=== PATIENT | female | born 1975 | race Two or more races ===

== ENCOUNTER 2018-11-22 09:00 | Outpatient (CLI) | payer OTHER | END 2018-11-22 11:02 | disposition home or self-care (01) | LOC: SONOGRAMA 09:00 | DX: E04.2 Nontoxic multinodular goiter (principal) ==

== ENCOUNTER 2021-07-15 08:25 | Outpatient (CLI) | payer OTHER | END 2021-07-15 08:29 | disposition home or self-care (01) | LOC: SONOGRAMA 08:25 | PROVIDERS: ATTEND Pathology Anatomic Pathology & Clinical Pathology | DX: E04.8 Other specified nontoxic goiter (principal) ==

== ENCOUNTER 2022-04-25 05:25 | Outpatient (CLI) | payer OTHER | END 2022-04-25 23:00 | disposition home or self-care (01) | LOC: LAB 05:25 | PROVIDERS: ATTEND Obstetrics & Gynecology | DX: Z20.818 Contact with and (suspected) exposure to other bacterial communicable diseases (principal); Z20.828 Contact with and (suspected) exposure to other viral communicable diseases ==

== ENCOUNTER 2023-10-24 14:37 | Outpatient (CLI) | payer OTHER | END 2023-10-24 14:47 | disposition home or self-care (01) | LOC: SONOGRAMA 14:37 | DX: E04.2 Nontoxic multinodular goiter (principal) ==

== ENCOUNTER 2023-12-12 10:41 | Outpatient (CLI) | payer OTHER | END 2023-12-12 10:52 | disposition home or self-care (01) | LOC: SONOGRAMA 10:41 | PROVIDERS: ATTEND Obstetrics & Gynecology | DX: R79.89 Other specified abnormal findings of blood chemistry (principal); Z11.4 Encounter for screening for human immunodeficiency virus [HIV]; Z11.3 Encounter for screening for infections with a predominantly sexual mode of transmission ==

== ENCOUNTER 2024-12-19 14:00 | Day surgery (SDC) | payer OTHER ==
[~2024-12-19 14:00] MED LIST: CEFAZOLIN SODIUM 1,000 MG VIAL ONE; LOSARTAN POTASS50 MG PO; POVIDONE-IODINE 118 ML BOTT TOP ONE
[2024-12-19] MEDS ORDERED: ONDANSETRON HCL 2 MG/ML VIAL ONE (15:52)
== END 2024-12-19 18:00 | disposition home or self-care (01) ==
LOC: CIR.AMB 14:00
PROVIDERS: ATTEND Obstetrics & Gynecology
DX: D25.0 Submucous leiomyoma of uterus (principal); N84.0 Polyp of corpus uteri; N92.0 Excessive and frequent menstruation with regular cycle

== ENCOUNTER 2025-01-07 13:16 | Outpatient (CLI) | payer OTHER ==
[~2025-01-07 13:16] MED LIST changes: -CEFAZOLIN SODIUM 1,000 MG VIAL ONE; -POVIDONE-IODINE 118 ML BOTT TOP ONE
== END 2025-01-07 13:24 | disposition home or self-care (01) ==
LOC: TOM 13:16
PROVIDERS: ATTEND Internal Medicine
DX: E04.8 Other specified nontoxic goiter (principal); R91.1 Solitary pulmonary nodule

== ENCOUNTER 2025-02-06 09:12 | Outpatient (CLI) | payer OTHER | END 2025-02-06 09:14 | disposition home or self-care (01) | LOC: SONOGRAMA 09:12 | PROVIDERS: ATTEND Pathology Anatomic Pathology & Clinical Pathology | DX: D34 Benign neoplasm of thyroid gland (principal); E07.89 Other specified disorders of thyroid; E04.8 Other specified nontoxic goiter ==